=== PATIENT | female | born 1965 | race Caucasian/White ===

== ENCOUNTER → 2022-12-20 | Outpatient (CLI) | payer MEDICAID, SELFPAY ==
--- NOTE | 2022-12-20 15:28 | BI_ITS ---
MAMMOGRAPHY - BILATERAL SCREENING REASON FOR EXAM: Female, 57 years old. Routine annual screening examination. PERTINENT HISTORY: Remote bilateral excisional biopsies. No reported personal or family history of breast cancer. TECHNIQUE: Digital bilateral breast isac (3D mammographic acquisition) in the CC and MLO projections. 2-D mediolateral oblique (MLO) and craniocaudad (CC) views of both breasts were obtained. CAD: Full Field Digital Mammography with Computer Added Detection was performed. COMPARISON: Screening mammogram from outside facility from 01/02/2021. FINDINGS: Breast Composition: There are scattered areas of fibroglandular density. There are no dominant masses or suspicious calcifications. There are small benign-appearing bilateral axillary lymph nodes. No other significant abnormalities are identified. There has been no significant change since the prior study. BI/SCRN MAMM (CAD)W/ISAC BILAT IMPRESSION: Negative screening mammogram. Stable examination since prior study from 01/02/2021. Yearly followup mammogram recommended. (A) ASSESSMENT CATEGORY: BIRADS Category 1: Negative. A letter regarding these results will be sent to the patient by the facility within 30 days. Approximately 10% of breast cancers are not detected by mammography. A normal mammogram should not delay biopsy of a clinically suspicious abnormality. Electronically Signed: Isaias Matthews DO at 14:18 EDT ,
== END | disposition home or self-care (01) ==
LOC: OPBI 15:25
PROVIDERS: PCP Internal Medicine; Referring Provider Nurse Practitioner Family; Visit Provider Nurse Practitioner Family
DX: Z12.31 Encounter for screening mammogram for malignant neoplasm of breast (principal); N62 Hypertrophy of breast
CPT/HCPCS: 77063; 77067

== ENCOUNTER 2023-02-02 15:27 | Observation (INO) | payer MEDICAID, SELFPAY ==
[2023-01-25 13:33] LABS: Hematocrit 40.2 % (37-47); Hemoglobin 12.3 g/dL (12.0-15.0); Mean Corp Hgb Conc 30.6 g/dL (32-36); Mean Corpuscular Hgb 26.5 pg (27.0-32.0); Mean Corpuscular Volume 86.6 fL (81-99); Mean Platelet Vol. 9.7 fl (6.2-12.0); Platelet Count 322 K/mm3 (150-450); RBC Distribution Width CV 15.4 % (11.6-14.6); RBC Distribution Width SD 48.8 fl (35.1-43.9); Red Blood Count 4.64 M/mm3 (4.2-5.4); White Blood Count 6.9 K/mm3 (4.4-11.0)
[2023-01-25 14:16] LABS: Magnesium 2.2 mg/dL (1.6-2.6); Thyroid Stim Hormone (TSH) 0.05 uIU/mL (0.358-3.74)
--- NOTE | 2023-02-01 21:58 | HP.PCM_ITS ---
History and Physical Date of Admission: 02/02/23 HISTORY OF PRESENT ILLNESS 57 year old woman presented with complaints of bilateral macromastia as well as associated painful symptomatology of neck pain, thoracic back pain, bilateral shoulder pain from shoulder grooving from the weight of her breasts on her bra straps, and inframammary intertrigo for which she uses powders with minimal relief and without resolution of her symptomatology. She denies any trauma to her breasts.? Denies any nipple discharge.? She has difficulty with activities of daily living especially chores around the house because of her painful symptomatology. She has not seen a Chiropractor for her cervical and thoracic spine pain. She was placed on Ozempic which helped her to lose 25 lbs in the past year. With the weight loss, she still has large breasts and still has the associated painful symptomatology. She had a recent mammogram on December 20, 2022 in [place]. It showed the breast composition shows scattered areas of fibroglandular density. There are no dominant masses or suspicious calcifications. There are small benign-appearing bilateral axillary lymph nodes. No other significant abnormalities are identified. There has been no significant change since the prior study. We have received medical approval for the bilateral breast reduction mammaplasty. She presents today for a preop visit to have any questions answered personally and to her satisfaction. She will also sign her office consent. The surgery is scheduled for February 02, 2023. PAST MEDICAL HISTORY Anemia Anxiety and depression Arthritis Back problem Bone fracture Breast lump in female Carpal tunnel syndrome Chronic neck pain Chronic thoracic back pain Former smoker Gastrointestinal problem GERD (gastroesophageal reflux disease) Intertrigo Left shoulder pain Macromastia Recent weight loss Right shoulder pain Thyroid disease PAST SURGICAL HISTORY Benign breast cyst in female History of appendectomy History of hernia repair ALLERGIES No Known Drug Allergies MEDICATIONS bupropion celecoxib (Celebrex) cholecalciferol (vitamin D3) famotidine (Pepcid) levothyroxine omeprazole ondansetron semaglutide (Ozempic) vilazodone (Viibryd) diazepam (Valium) FAMILY HISTORY Mother - Respiratory disease Father - Anxiety, Arthritis, Diabetes Brother - Diabetes, Kidney disease Sister - Colon cancer, Diabetes, Anemia, Lung cancer SOCIAL HISTORY Smoking Status: Former smoker alcohol intake: current substance use type: does not use REVIEW OF SYSTEMS General - Denies fever and fatigue. Had 25 lb weight loss in past year.? Eyes - Has cataracts.? Denies glaucoma. ENT - Denies nasal congestion and sore throat. Endocrine - Denies excessive thirst. Has excessive urination. ?Has thyroid disease. Skin - Denies suspicious lesions and skin cancer.? Has inframammary intertrigo.? Musculoskeletal - Has joint pain, joint stiffness, weakness of muscles and joints, neck pain and thoracic back pain, and arthritis.? ? Has bilateral shoulder pain from shoulder grooving from the weight of her breasts on her bra straps. Neuro - Has headaches. Cardiovascular - Denies chest pain, fatigue,? and shortness of breath with exertion. Psych - Has anxiety and depression. Respiratory - Denies shortness of breath and chronic cough.? Has sleep apnea. Patient is a smoker. Gastrointestinal - Denies nausea, vomiting, diarrhea, and constipation. Hematologic - Denies abnormal bruising and bleeding. Has anemia. Genitourinary - Denies hematuria. Has urinary frequency and some dribbling. PHYSICAL EXAMINATION General - Alert and oriented. Patient's bra size is GG.? Her height is 63 inches.? Her weight is 211 lbs.? Her BMI is 37.4%.? Her BSA is 1.98m2. HEENT - PERRL. EOMI. Throat is clear. Neck - Supple.? No bony tenderness.? There is some pericervical soft tissue tenderness. Lungs- Clear to auscultation. Heart - Regular rate and rhythm. Breasts - Patient has bilateral macromastia.? No breast masses palpable. No axillary adenopathy noted.? Left breast is slightly larger than the right breast. Distance from midclavicular line on the left to the nipple is 35 cm and from the nipple to the inframammary fold is 12 cm. Distance from midclavicular line on the right to the nipple is 33 cm and from nipple to the inframammary fold is 12 cm. Nipple areolar complex diameter is 6 cm bilaterally.? No active inframammary in tertrigo noted at this time. Abdomen - Soft and non distended. Back - No bony tenderness noted.? There is perivertebral soft tissue tenderness in the upper thoracic area. Extremities - FROM.? No axillary adenopathy.? Radial pulses are palpable. There is some bilateral shoulder tenderness with shoulder grooving from the weight of her breasts on her bra straps. Neuro - CN II-XII grossly intact. Psych - Normal and mood and affect. ASSESSMENT 1.? Bilateral macromastia. 2.? Neck pain. 3.? Thoracic back pain. 4.? Bilateral shoulder pain from shoulder grooving from the weight of the breasts on her bra straps. 5.? Inframammary intertrigo. 6. Recent weight loss. 7.? Former smoker. PLAN Discussed with the patient the procedure of breast reduction mammoplasty.? I feel this procedure would be beneficial in this patient as it would help relieve her painful symptomatology. Patient had a recent mammogram on December 20, 2022 in [place]. It showed the breast composition shows scattered areas of fibroglandular density. There are no dominant masses or suspicious calcifications. There are small benign- appearing bilateral axillary lymph nodes. No other significant abnormalities are identified. There has been no significant change since the prior study. Postoperatively, she would get a breast reduction baseline mammogram at some point. Based on the Schnur Sliding Scale, I would remove approximately 607 grams of breast tissue per side.? We will send the tissue to pathology for analysis to rule out carcinoma. This sliding scale helps to determine the minimum required amount of tissue that needs to be removed from each breast in order for it to be considered a medical need.? Her BSA is 1.98m2 which corresponded to the 607 grams of breast tissue needed to be removed from each breast. Discussed with patient the extent of scarring for this procedure.? The biggest risk for wound healing problems is the T-zone area.? Usually wound care and sometimes antibiotics are necessary for healing in this area. ? She would have drains in for a few days depending on the amount of tissue that is removed.? She will be on antibiotics until the drains are removed. In general, the final breast size would range from a high B to a low C cup.? Patient voices understanding and would like to be in the C cup range. Surgery will be done under general anesthesia with a surgical observation overnight stay in the hospital. We have received medical approval from her insurance carrier for her bilateral breast reduction mammaplasty. It is scheduled for 02/02/23. Patient was informed of the risks and complications of the procedure including alternatives to surgery.? These were discussed with her personally.? She voices understanding and wishes to proceed. Some of the risks and complications were included in a form from the [place] [employer]. Potential risks and complications included but not inclusive of bleeding, infection, seroma, hematoma, bruising, swelling, prolonged need for drains, loss of sensation to skin, partial or complete loss of skin flap and/or skin graft, wound breakdown, need for wound care, poor scarring, poor aesthetic outcome, intra operative cardiac or neurologic events, DVT, PE, and reaction to anesthesia. She had preop questions that were answered today personally and to her satisfaction. She signed the office consent.
[2023-02-02] VITALS (15 sets, daily range): BP systolic 120–140; BP diastolic 70–89; PULSE 81–117; RESP 16–18; TEMP 37.2–37.4; O2SAT 93–100; BMI 33.7
[2023-02-02] MEDS: Scopolamine 1mg/72hr Patch 1 PATCH TD (06:30)
[2023-02-02] MEDS: Lactated Ringers 1,000 ML 40 ML IV ×2 (06:31→20:57)
[2023-02-02] MEDS: Magnesium 1 GM over 15 mins IV (06:31)
[2023-02-02] MEDS: Gabapentin 600 MG Tablet PO (06:31)
[2023-02-02] MEDS: Acetaminophen 500 MG Tablet 1000 MG PO ×2 (06:31→21:19)
[2023-02-02 06:53] LABS: Bedside Glucose 86 mg/dL (74-106)
--- NOTE | 2023-02-02 07:30 | BR_PTH ---
PATIENT: EDIE CASAS LOC: MS3 U#:[id number] AGE/SX: 57/F ROOM: [facility] RE02/02/[address]: Dr. Lul Paulino MD : 1965 BED: 1 DIS: 02/03/2023 SPEC #: [id number] RECD: 02/02/23 14:47 STATUS: JESUS REStormy #: [id number] JACKI: 02/02/23 07:[address]: Lul Paulino DEPT: SURGICAL PATHOLOGY RECD BY: Kaya Chand ENTERED: 02/03/23 10:45 SP TYPE: MAMOPLASTY OTHR DR: Dr. Shaquille Castle MD Tissues: A - Left breast, NOS B - Right breast, NOS Procedures: Surgery Specimen Level IV HEADER OPERATION: ERAS, bilateral breast reduction mammoplasty PRE-OP DIAGNOSIS: Bilateral macromastia, neck and thoracic back pain, bilateral shoulder pain TISSUE SUBMITTED: A - Left breast tissue, B - Right breast tissue MICROSCOPIC DIAGNOSIS A. Left breast tissue, reduction mammoplasty: Mild duct ectasia. Focal intraductal Hyperplasia without atypia. Skin with no pathologic change. B. Right breast tissue, reduction mammoplasty: Fibrocystic change. Focal intraductal Hyperplasia without atypia. Skin with no pathologic change. AM:stella 02/07/2023 MICROSCOPIC DESCRIPTION Slides are reviewed. GROSS DESCRIPTION A - Received in fixative is one container labeled with the patient's name and designated left breast tissue. The specimen consists of multiple pieces of fibroadipose tissue with a few of the pieces showing mason-white skin, weighing in aggregate 944 gm and measuring in aggregate 23.0 x 21.0 x 7.0 cm. No skin lesion is identified. Sections reveal yellow adipose cut surfaces mixed with scant fibrous areas. No mass lesion is identified. Automatic Outsole Cutter sections are submitted in six cassettes. Cassette 1 contains the skin. Sections will be submitted after additional fixation. B - Received in fixative is one container labeled with the patient's name and designated right breast tissue. The specimen consists of multiple pieces of fibroadipose tissue with a few of the pieces showing mason-white skin, weighing in aggregate 831 gm and measuring in aggregate 25.0 x 21.0 x 7.0 cm. No skin lesion is identified. Sections reveal yellow adipose cut surfaces with focal fibrous areas. No mass lesion is identified. Automatic Outsole Cutter sections are submitted in six cassettes. Cassette 1 contains the skin. Sections will be submitted after additional fixation. / STACY:stella 02/03/2023 TC:5 CPT: 31256 x2
[2023-02-02] MEDS: Cefazolin 2 GM in 0.9% Normal Saline (100mL Bag) 100 ML IV (08:14)
[2023-02-02] MEDS: Lidocaine 1% /Epi 1:100 (20ml) 20 ML Vial (08:55)
[2023-02-02] MEDS: Cefazolin 1 GM/50 ML BAG IV ×2 (12:14→21:02)
--- NOTE | 2023-02-02 15:00 | OP.PCM_ITS ---
Problems Associated Problem List Diagnoses (1) Macromastia: (2) Chronic neck pain: (3) Chronic thoracic back pain: (4) Right shoulder pain: (5) Left shoulder pain: (6) Intertrigo: (7) Recent weight loss: (8) Former smoker: Report of Operation Date of Procedure: 02/02/23 Pre-Operative Diagnosis: 1. Bilateral macromastia. 2. Neck pain. 3. Thoracic back pain. 4. Bilateral shoulder pain from shoulder grooving from the weight of the breasts on her bra straps. 5. Inframammary intertrigo. 6. Recent weight loss. 7. Former smoker. Post-Operative Diagnosis: Same. Surgery/Procedure Performed:: Bilateral breast reduction mammaplasty. Description of Surgical Findings:: 57 year old woman presented with complaints of bilateral macromastia as well as associated painful symptomatology of neck pain, thoracic back pain, bilateral shoulder pain from shoulder grooving from the weight of her breasts on her bra straps, and inframammary intertrigo for which she uses powders with minimal relief and without resolution of her symptomatology. She denies any trauma to her breasts.? Denies any nipple discharge.? She has difficulty with activities of daily living especially chores around the house because of her painful symptomatology. She has not seen a Chiropractor for her cervical and thoracic spine pain. She was placed on Ozempic which helped her to lose 25 lbs in the past year. With the weight loss, she still has large breasts and still has the associated painful symptomatology. She had a recent mammogram on December 20, 2022 in [place]. It showed the breast composition shows scattered areas of fibroglandular density. There are no dominant masses or suspicious calcifications. There are small benign-appearing bilateral axillary lymph nodes. No other significant abnormalities are identified. There has been no significant change since the prior study. We have received medical approval for the bilateral breast reduction mammaplasty. She presents today for a preop visit to have any questions answered personally and to her satisfaction. Patient was informed of the risks and complications of the procedure including alternatives to surgery.? These were discussed with her personally.? She voices understanding and wishes to proceed. Some of the risks and complications were included in a form from the [place] [employer]. Potential risks and complications included but not inclusive of bleeding, infection, seroma, hematoma, bruising, swelling, prolonged need for drains, loss of sensation to skin, partial or complete loss of skin flap and/or skin graft, wound breakdown, need for wound care, poor scarring, poor aesthetic outcome, intra operative cardiac or neurologic events, DVT, PE, and reaction to anesthesia. IV Fluids - 2000 ml. Urine Output - 350 ml. Tissue removed from the left breast - 924 grams. Tissue removed from the right breast - 856 grams. I used Interfyl Human Placental Connective Tissue Matrix, (I used one vial in each breast). Product Code - [id number]. Lot Number - [id number]. Expiration - March 11, 2031, (Right Breast). Product Code - [id number]. Lot Number - [id number]. Expiration - November 30, 2030, (Left Breast). I used Rubi absorbable hemostat, (I used 6 vials, 3 in each breast). Reference Number - [id number]. Lot Number - [id number]. Expiration - July 28, 2027, (I used one vial, Left Breast). Reference Number - [id number]. Lot Number - [id number]. Expiration - June 29, 2027, (I used 2 vials, Left Breast). Reference Number - [id number]. Lot Number - [id number]. Expiration - July 28, 2027, (I used 3 vials, Right Breast). Surgeon: Lul Paulino MD inspector grain mill products: Derek Hunt RNFA Type of Anesthesia: General Anesthesiologist: Jorge A Mejia MD Specimen's removed: 1. Left breast tissue to Pathology. 2. Right breast tissue to Pathology. Drains: Sagar x2 (one in each breast). Estimated Blood Loss (mL): 150. Fluids Replaced: 2350 ml (IV Fluids 2000 ml, Urine Output 350 ml). Description of Procedure: In the preop area, the patient was placed in the sitting position and preoperative markings were made.? The sternum midline was marked down to the umbilicus.? The inframammary folds were marked bilaterally.? The midclavicular line was then marked down to the nipple, then from the nipple to the inframammary fold.? The inframammary fold was then superimposed on the mid clavicular line and I made a point 1 cm below that to be the new position of the nipple-areolar complex.? 7 cm lines were then drawn divergent from that point to encompass the nipple-areolar complex.? The distance between the divergent lines was 10 cm.? The patient was then placed in the supine position and taken to the operating room and placed under general anesthesia and her breasts were prepped and draped in usual fashion.? Ioban draping was also used.? SCDs were placed for DVT prophylaxis.? Perioperative antibiotics were given intravenously.? A Quesada catheter was also placed. ? I then tristen straight lines down from the lines drawn divergent around the nipple-areolar complex down to the inframammary fold.? The width of the pedicle is 10 cm.? I then used a 45 mm circular template for a new size of the nipple-areolar complex.? The central markings were infiltrated with Xylocaine and epinephrine.? The central skin was then deepithelialized.? I started on the left side first and then went to the right side.? I then mobilized medial and lateral breast flaps at the level of Lindsey's fascia down to about 1-2 cm from the chest wall.? This was met in the midline of the breast with dissection at the level of Lindsey's fascia down to about 1-2 cm from the chest wall.? Once the central breast mound pedicle was from the skin envelope, the reduction was then begun.? Most of the tissue was removed from the superior aspect of the breast and the lateral aspect of the breast.? I then sutured the leading edge of the medial and lateral breast flaps to the midline of the inframammary fold with 2-0 Vicryl suture.? The vertical incision was approximated using surgical clips.? The excess tissue from the medial and lateral breast flaps were excised and the horizontal incision was approximated using surgical clips.? The patient was then placed in a sitting position.? Using a vertical limb length of 5 cm, I tristen the new position of the nipple-areolar complexes on both breasts.? They were in good position on the central aspect of the breast mound.? Good symmetry was noted between the left breast and the right breast.? Good shape and contour and projection were noted and appeared clinically to be a C cup.? The patient was then placed back in the supine position and the surgical clips were removed.? The breast wounds were then irrigated with Irrisept 0.05% Chlorhexidine solution which was followed by saline irrigation.? Hemostasis was obtained using electrocautery.? The tissue removed from the left breast was 924 grams.? The tissue removed from the right breast was 856 grams.? The tissue that was removed from the breasts was sent to Pathology for analysis to rule out carcinoma. ? After hemostasis was obtained using electrocautery, I then sprayed Rubi absorbable hemostat into both breast wounds to minimize seroma formation.? I used three vials for each side.? I then placed a size 15 Sagar drain into each breast wound to be brought through the lateral aspect of the horizontal incision.? I then closed the breast wounds by first approximating the leading edge of the medial and lateral breast flaps to the midline of the inframammary fold with 2-0 Vicryl suture.? I then sprayed Interfyl placental connective tissue matrix into both wounds at the level of the Tzone to help with the healing process.? The deep dermis and subcutaneous tissue of the vertical incision and the horizontal incisions were approximated using 3- 0 Monocryl interrupted sutures.? ? The horizontal incision was then approximated using 3-0 Stratafix monofilament unidirectional barbed running subcuticular suture.? I also placed a few 4-0 Prolene vertical mattress interrupted sutures at the level of the Tzone.? The vertical incision was then closed on the skin with 4-0 Prolene interrupted sutures.? With a vertical limb length of 5 cm, I tristen a circular incision where the nipple-areolar complex would be brought through this keyhole incision.? Incisions were made and the nipple areolar c omplex was brought through the keyhole incision.? The nipple-areolar complex was secured to the breast skin using 3-0 Monocryl interrupted sutures for deep dermis and subcutaneous tissue.? The skin was approximated using 4-0 Prolene simple interrupted sutures.? This was then covered with Histoacryl skin tissue adhesive.? I sutured the drains to the skin using 3-0 nylon pursestring suture.? At the end of the procedure, the breasts were soft with no evidence of vascular compromise.? No evidence of hematomas were noted.? The nipples were viable.? I then dressed the breasts with a Kerlix gauze and a compression surgical bra.? Then patient tolerated the procedure well and will be sent to the recovery room in satisfactory condition.? She will be admitted for surgical observation overnight stay.? She will go home tomorrow once she is tolerating oral pain medication.? I will remove the drains in a few days.? She will keep her head elevated during the initial postoperative period.? She will be maintained on a lifting restriction. The operative blood loss was about 150 ml.? Post-discharge, she may get a compression sports bra as well.? She will have the Quesada removed in the morning.? She will be sent home on antibiotics and pain medicine.? Sutures will be removed in 1-2 weeks. Grafts/Implants Used: Rubi, Interfyl Placental Connective Tissue Matrix x2. Procedure Start Time: 08:55 Procedure Stop Time: 15:27 Complications None. Admit VTE Documentation VTE Present on Admission: No VTE Mechan Device Prophylaxis: SCD's VTE Pharm Prophylaxis ordered?: Yes Addendum Addendum: Surgery Charges CPT - 83199-41 ICD-10 - N62, M54.2, M54.6, M25.511, M25.512, L30.4, R63.4, Z87.891 [id number] N62, M54.2, M54.6, M25.511, M25.512, L30.4, R63.4, Z87.891
[2023-02-02] MEDS: HYDROmorphone 1 MG/ML Syringe IV (18:13)
[2023-02-02] MEDS: Lactated Ringers 1,000 ML 60 ML IV (19:01)
[2023-02-02] MEDS: Ondansetron 4 MG/2 ML Vial IV (21:00)
[2023-02-02] MEDS: Gabapentin 100 MG Capsule 200 MG PO (21:19)
[2023-02-02] MEDS: oxyCODONE 5 MG Tablet PO (21:19)
[2023-02-03 00:32] VITALS: BP 104/65; PULSE 105; RESP 18; TEMP 37.1; O2SAT 93
[2023-02-03] MEDS: Acetaminophen 500 MG Tablet 1000 MG PO ×3 (05:16→17:53)
[2023-02-03] MEDS: Levothyroxine 150 MCG Tablet PO (05:16)
[2023-02-03] MEDS: Cefazolin 1 GM/50 ML BAG IV ×2 (05:16→13:30)
[2023-02-03] MEDS: Ondansetron ODT 4 MG Tablet PO ×2 (05:17→13:10)
[2023-02-03] MEDS: oxyCODONE 5 MG Tablet PO ×3 (05:17→16:40)
[2023-02-03 05:58] LABS: Hematocrit 34.7 % (37-47); Hemoglobin 10.6 g/dL (12.0-15.0); Mean Corp Hgb Conc 30.5 g/dL (32-36); Mean Corpuscular Hgb 27.1 pg (27.0-32.0); Mean Corpuscular Volume 88.7 fL (81-99); Mean Platelet Vol. 9.1 fl (6.2-12.0); Platelet Count 254 K/mm3 (150-450); RBC Distribution Width CV 15.3 % (11.6-14.6); RBC Distribution Width SD 49.7 fl (35.1-43.9); Red Blood Count 3.91 M/mm3 (4.2-5.4)
[2023-02-03 06:33] LABS: Anion Gap 2 (5-15); BUN 9 mg/dL (7-18); BUN/Creat Ratio 13.5 RATIO (10-20); Chloride 106 mmol/L (98-107); Creatinine, Serum 0.66 mg/dL (0.55-1.02); EST Glomerular Filtration Rate 97 mL/min (>60); Est Glom Filt Rate - Afr Amer 117 mL/min (>60); Estimated Creatinine Clearance 80.23 ml/min; Glucose 125 mg/dL (74-106); Potassium 4.2 mmol/L (3.5-5.1); Prealbumin 16.8 mg/dL (20.0-40.0); Sodium Level 139 mmol/L (136-145)
[2023-02-03 07:23] VITALS: O2SAT 90
[2023-02-03 07:59] VITALS: BP 106/67; PULSE 112; RESP 18; TEMP 36.6; O2SAT 91
[2023-02-03] MEDS: Multivitamins,Therapeutic Tablet 1 TABLET PO (09:34)
[2023-02-03] MEDS: Ensure Surgery 237 ML LIQUID PO (09:34)
[2023-02-03] MEDS: buPROPion (XL) 300 MG TABLET.XL PO (09:34)
[2023-02-03] MEDS: Docusate Sodium 100 MG Capsule PO (09:34)
[2023-02-03] MEDS: Cholecalciferol (VIT D3) 25 MCG TABLET (1,000 UNITS) PO (09:34)
[2023-02-03] MEDS: Gabapentin 100 MG Capsule 200 MG PO ×3 (09:36→16:40)
[2023-02-03] MEDS: Heparin Injection (Vial) 5,000 UNIT/ML VIAL 5000 UNIT SC (09:40)
[2023-02-03 12:10] VITALS: BP 106/65; PULSE 94; RESP 18; TEMP 37.2; O2SAT 94
--- NOTE | 2023-02-03 13:14 | PCM.PN.SRG ---
Subjective Subjective Postop #1 Patient states pain is well controlled. She has been having some nausea. She has voided since her catheter was removed and is having urges to pee Objective Data Objective Data Vital Signs: Vital Signs Temp Pulse Resp BP Pulse Ox O2 Del Method O2 Flow Rate 98.9 F 94 18 106/65 94 Room Air 2 02/03/23 12:10 02/03/23 12:10 02/03/23 12:10 02/03/23 12:10 02/03/23 12:10 02/03/23 12:10 02/02/23 19:36 Oxygen Flow Rate (L/min) 2 Oxygen Delivery Method Room Air Weight: 196 lb 3.382 oz Body Mass Index (BMI) 33.7 Intake & Output: Intake and Output for Last 24 Hours 02/01/23 02/02/23 02/03/23 23:59 23:59 23:59 Intake Total 3312 / 3992 1588.67 / 1588.67 Output Total 425 / 1025 1295 / 1295 Balance 2887 / 2967 293.67 / 293.67 Left breast Sagar drain 115 ml Right breast Sagar drain 130 ml Lab / Micro Data Attestation: I reviewed the patient's lab results. 02/03/23 05:50 02/03/23 05:50 Labs: Laboratory Results - last 24 hr 02/03/23 05:50: WBC 11.0, RBC 3.91 L, Hgb 10.6 L, Hct 34.7 L, MCV 88.7, MCH 27.1, MCHC 30.5 L, RDW Std Deviation 49.7 H, RDW Coeff of Hue 15.3 H, Plt Count 254, MPV 9.1, Sodium 139, Potassium 4.2, Chloride 106, Carbon Dioxide 31.0, Anion Gap 2 L, BUN 9, Creatinine 0.66, Estim Creat Clear Calc 80.23, Est GFR (MDRD) Af Amer 117, Est GFR (MDRD) Non-Af 97, BUN/Creatinine Ratio 13.5, Glucose 125 H, Calcium 8.0 L, Prealbumin 16.8 L Physical Exam Const alert and oriented x3 General Appearance: cooperative HEENT normocephalic Eyes General Eye: normal appearance of both eyes Resp normal respiratory effort Effort and Inspection: able to speak in complete sentences Cardio regular rate GI soft to palpation Extremity normal to inspection, full ROM and normal capillary refill Skin Skin Narrative: Bilateral breast operative dressing removed. Breasts are soft and symmetrical. Nipples are viable and pink. Minimal bruising present on breasts. Sagar drains intact and draining serosanguineous drainage. Neuro oriented x3, CN's II-XII intact bilaterally and moves all extremities Assessment & Plan Assessment/Plan (1) Macromastia: (2) Chronic neck pain: (3) Chronic thoracic back pain: (4) Right shoulder pain: (5) Left shoulder pain: (6) Intertrigo: (7) Recent weight loss: (8) Former smoker: (9) Other acute postprocedural pain: PLAN: Plan Patient is doing well. Pain is controlled with oral pain meds. She is having issues with nausea, especially if she looks at the drainage in her Sagar drains. Bilateral breast operative dressing removed. Breasts are soft and symmetrical. Nipples are viable and pink. Minimal bruising present on breasts. Sagar drains intact and draining serosanguineous drainage. Placed Kerlix and ZEYAD wrap for compression. Instructed her that she needs to wear compression at all times. She does not need to change the dressing unless she is having drainage. Instructed her to keep track of drainage and to bring recordings into her appointment next week. She should keep her head elevated and has a 15 lb weight lifting restriction. Will send her home on Cephalexin until drains are removed. Percocet (28 tabs) for pain PDMP reviewed. Zofran for her nausea and Colace for constipation. She has a follow up appointment with me on TuesdayFebruary 08 at 10:30 am.
--- NOTE | 2023-02-03 13:14 | PCM.DC ---
Discharge Instructions Diet Discharge Diet: No restrictions (encouraged increase protein intake to help with healing) Activity Discharge Activity: May Not Drive and May Not Shower (may not shower until the drains are removed) May resume sexual activity in: 1-2 weeks Lifting Restrictions: 15 lb weight lifting restriction. Additional Activity Instructions:: Use incentive spirometer 10 x every hour. Encourage ambulation every hour while await to help prevent blood clots Dressing / Incision Call your doctor if your incision/area has: Continuous Slow Oozing, Sudden Increased Bleeding, Increased Pain/ Swelling, Increased Redness and Foul Smelling Discharge Call your doctor if you observe: Fever of 101 or Higher, Inability to urinate, Inability to have a bowel movement, Shortness of breath, Chest pain, Calf discomfort and Uncontrolled pain Change Dressing in: leave in place till F/U (If have drainage, may change dressing if necessary) Cleanse incision/area with: Keep Dressing Clean & Dry Drain: Suction Additional Dressing/Incision Instructions:: Keep track of drainage and bring results in to office visit Follow Up Care Please Follow Up With: Tania Sullivan LOSS PREVENTION LEAD, LOSS PREVENTION LEAD-C When: Wednesday February 08, 2023 at 10:30 am. Office # [phone] Test Results: Test results from this visit will be discussed in further detail at your follow-up appointment, if applicable. Discharge Plan Admission Admit Date/Time: 02/02/23 15:27 Attending Provider: Lul Paulino Primary Care Provider: Shaquille Castle Discharge Orders/Prescriptions Prescriptions: New cephalexin 500 mg capsule 500 mg PO Q12H 7 Days Qty: 14 0RF ondansetron 4 mg tablet,disintegrating 4 mg PO Q8H PRN (Reason: nausea and vomiting) 5 Days Qty: 14 0RF oxycodone-acetaminophen [Percocet] 5-325 mg tablet 1 tab PO Q6H PRN (Reason: pain (scale score 7-10)) 7 Days Qty: 28 0RF docusate sodium [Colace] 100 mg capsule 100 mg PO DAILY 15 Days Qty: 15 0RF Continued bupropion HCl 300 mg tablet extended release 24 hr 300 mg PO QAM celecoxib [Celebrex] 200 mg capsule 200 mg PO DAILY cholecalciferol (vitamin D3) 25 mcg (1,000 unit) capsule 1,000 unit PO DAILY levothyroxine 150 mcg capsule 150 mcg PO DAILY ondansetron HCl 4 mg tablet 4 mg PO Q6H PRN (Reason: nausea and vomiting) vilazodone [Viibryd] 40 mg tablet 40 mg PO DAILY Rx Instructions: must administer with a meal/food Ozempic 0.25 mg or 0.5 mg (2 mg/3 mL) pen injector 2.4 mg subcut QWEEK Rx Instructions: for 4 weeks diazepam [Valium] 5 mg tablet 5 mg PO QHS PRN (Reason: sleep) Qty: 3 0RF Rx Instructions: 3 tabs (three) Begin 3 nights before surgery multivitamin [Daily Multi-Vitamin] Tablet 1 tab PO DAILY Referrals / Follow Up: Shaquille Castle MD [Primary Care Provider] - Disposition Disposition (needs filled in before D/C Order can be placed): Home, Self Care
--- NOTE | 2023-02-03 15:14 | PHA.DC.MC.R ---
Pharmacy [facility] has performed discharge medication reconciliation and counseling for this patient. The patient was counseled on the following discharge medications and changes in medications for homegoing were reviewed. 1. KEFLEX 2. PERCOCET 3. ZOFRAN 4. COLACE The Reason for Use, instructions for use, and potential side effects were reviewed for all new medications. The patient's questions regarding all of their medications were answered. The patient was able to verbally demonstrate an understanding of their discharge medications. The patient's discharge medication list was reviewed for discrepancies and discrepancies were resolved. Medications at Discharge Home Medications bupropion HCl 300 mg 24 hr tablet, extended release 300 mg PO QAM 10/11/22 celecoxib 200 mg capsule (Celebrex) 200 mg PO DAILY 10/11/22 cholecalciferol (vitamin D3) 25 mcg (1,000 unit) capsule 1,000 unit PO DAILY 10/11/22 levothyroxine 150 mcg capsule 150 mcg PO DAILY 10/11/22 ondansetron HCl 4 mg tablet 4 mg PO Q6H PRN nausea and vomiting 10/11/22 semaglutide 0.25 mg or 0.5 mg (2 mg/3 mL) subcutaneous pen injector (Ozempic) 2.4 mg subcut QWEEK 10/11/22 vilazodone 40 mg tablet (Viibryd) 40 mg PO DAILY 10/11/22 diazepam 5 mg tablet (Valium) 5 mg PO QHS PRN sleep #3 tabs 01/06/23 multivitamin (Daily Multi-Vitamin tablet) 1 tab PO DAILY 01/24/23 cephalexin 500 mg capsule 500 mg PO Q12H 7 days #14 caps 02/03/23 docusate sodium 100 mg capsule (Colace) 100 mg PO DAILY 15 days #15 caps 02/03/23 ondansetron 4 mg disintegrating tablet 4 mg PO Q8H PRN nausea and vomiting 5 days #14 tabs 02/03/23 oxycodone-acetaminophen 5 mg-325 mg tablet (Percocet) 1 tab PO Q6H PRN pain (scale score 7-10) 7 days #28 tabs 02/03/23
[2023-02-03 16:30] VITALS: BP 122/70; PULSE 95; RESP 18; TEMP 37.7; O2SAT 95
[2023-02-03] MEDS: 0.9% Saline Lock 10 ML Syringe IV (16:40)
== END 2023-02-03 18:13 | disposition home or self-care (01) ==
LOC: SDC 02-03 11:36 → MS3 02-03 11:36
PROVIDERS: Anesthesiology; Admitting Provider Surgery; PCP Internal Medicine; Referring Provider Surgery; Visit Provider Surgery
PROC: 0H0U0ZZ Alteration of Left Breast, Open Approach (ICD-10-PCS; CPT 19318; principal; 2023-02-02 07:15)
DX: N62 Hypertrophy of breast (principal); M54.2 Cervicalgia; M25.512 Pain in left shoulder; R11.0 Nausea; G89.29 Other chronic pain; E07.9 Disorder of thyroid, unspecified; Z87.891 Personal history of nicotine dependence; M54.6 Pain in thoracic spine; M25.511 Pain in right shoulder; Z79.899 Other long term (current) drug therapy; Z79.890 Hormone replacement therapy; K21.9 Gastro-esophageal reflux disease without esophagitis; F41.9 Anxiety disorder, unspecified; F32.A Depression, unspecified; L30.4 Erythema intertrigo; R63.4 Abnormal weight loss
CPT/HCPCS: 19318; 00402; Q9968; 36415; 80048; 82962; 83735; 84134; 84443; 85027; 88305; 93005; 94668; 96365; 96366; 96372; 96375; 99221; J7120; A4216; G0378; J2405; J3475

== ENCOUNTER → 2023-02-18 | Outpatient (CLI) | payer MEDICAID, SELFPAY | END | disposition home or self-care (01) | LOC: LABSPEC 11:09 | PROVIDERS: PCP Internal Medicine; Visit Provider Surgery | DX: N64.1 Fat necrosis of breast (principal); Z98.890 Other specified postprocedural states; T81.89XA Other complications of procedures, not elsewhere classified, initial encounter | CPT/HCPCS: 87070; 87075; 87077; 87186; 87205 ==

== ENCOUNTER → 2024-08-02 | Outpatient (CLI) | payer MEDICAID, SELFPAY ==
--- NOTE | 2024-08-02 13:43 | BI_ITS ---
EXAM: DIAG MAMM W/CAD, BILAT 08/02/2024 CLINICAL HISTORY: F, Age 58 y/o , LEFT MASS Left breast periareolar lump. Possible abscess in the right periareolar region. Prior bilateral breast reduction surgery. TECHNIQUE: Bilateral Diagnostic digital breast tomosynthesis with 2D and 3D images. Computer aided detection. COMPARISON: Prior exam(s) dated comparison is made with prior study dated December 20, 2022.. FINDINGS: TISSUE DENSITY: The breast tissue is almost entirely fatty. Bilateral Breast Mammographic Findings: No significant masses, calcifications or other abnormalities are identified. BI/DIAG MAMM W/CAD, BILAT IMPRESSION: Right Breast: BIRADS 1 NEGATIVE. Left Breast: BIRADS 1 NEGATIVE. OVERALL FINAL ASSESSMENT: BIRADS 1 NEGATIVE. RECOMMENDATION: Routine annual follow-up in 1 Year A letter with findings and recommendations will be mailed to the patient. Reading Location: [place] [id number]
--- NOTE | 2024-08-02 13:43 | US_ITS ---
PROCEDURE: BREAST LIMITED UNILATERAL 08/02/2024 REASON FOR EXAM: 58-year-old female presented with palpable concerns in the bilateral retroareolar regions. The patient reports right breast abscess with open wound at the areolar scar with right nipple discharge, status post antibiotic treatment. History of bilateral breast reduction 01/2023. No family history breast cancer. TECHNIQUE: Targeted bilateral breast ultrasound. COMPARISON: Mammograms 08/02/2024, 12/20/2022 FINDINGS: Left breast ultrasound was targeted to the retroareolar region at the area of palpable concern. Ultrasound demonstrates a heterogeneous area without associated vascular flow in the retroareolar left breast measuring 1.5 x 1.4 x 1.0 cm. This area is consistent with fat necrosis and correlates with the fat necrosis seen on the mammogram. Right breast ultrasound was targeted to the retroareolar region at the area of patient's reported pain. Ultrasound demonstrates a fluid collection in the retroareolar right breast measuring 0.7 x 0.6 x 0.3 cm, this likely represents a tiny abscess. US/Breast Limited Unilateral IMPRESSION: Impression: 1. The patient's area of palpable concern in the left breast corresponds to be nign fat necrosis/trauma. 2. The patient's area of pain in the right breast corresponds to a tiny fluid collection in the retroareolar region, likely representing an abscess. Clinical management is recommended. Birads: BI-RADS 2: BENIGN. RECOMMEND ANNUAL MAMMOGRAPHIC SCREENING. Reading Location: [id number]
--- NOTE | 2024-08-02 14:47 | US_ITS ---
PROCEDURE: BREAST LIMITED UNILATERAL 08/02/2024 REASON FOR EXAM: 58-year-old female presented with palpable concerns in the bilateral retroareolar regions. The patient reports right breast abscess with open wound at the areolar scar with right nipple discharge, status post antibiotic treatment. History of bilateral breast reduction 01/2023. No family history breast cancer. TECHNIQUE: Targeted bilateral breast ultrasound. COMPARISON: Mammograms 08/02/2024, 12/20/2022 FINDINGS: Left breast ultrasound was targeted to the retroareolar region at the area of palpable concern. Ultrasound demonstrates a heterogeneous area without associated vascular flow in the retroareolar left breast measuring 1.5 x 1.4 x 1.0 cm. This area is consistent with fat necrosis and correlates with the fat necrosis seen on the mammogram. Right breast ultrasound was targeted to the retroareolar region at the area of patient's reported pain. Ultrasound demonstrates a fluid collection in the retroareolar right breast measuring 0.7 x 0.6 x 0.3 cm, this likely represents a tiny abscess. US/Breast Limited Unilateral IMPRESSION: Impression: 1. The patient's area of palpable concern in the left breast corresponds to be nign fat necrosis/trauma. 2. The patient's area of pain in the right breast corresponds to a tiny fluid collection in the retroareolar region, likely representing an abscess. Clinical management is recommended. Birads: BI-RADS 2: BENIGN. RECOMMEND ANNUAL MAMMOGRAPHIC SCREENING. Reading Location: [id number]
== END | disposition home or self-care (01) ==
PROVIDERS: PCP Internal Medicine; Referring Provider Surgery Plastic and Reconstructive Surgery; Visit Provider Surgery Plastic and Reconstructive Surgery
DX: N63.22 Unspecified lump in the left breast, upper inner quadrant (principal); N61.1 Abscess of the breast and nipple
CPT/HCPCS: 77062; 76642; 77066; G0279